=== PATIENT | female | born 1995 | race Asian ===

== ENCOUNTER 2017-07-20 18:27 | Emergency (ER) | payer OTHER ==
[~2017-07-20] VITALS: Ht 170.2 cm; Wt 57.4 kg
[~2017-07-20 18:27] MED LIST: IBUP800T19 PO
[2017-07-20 18:40] VITALS: BP 106/67
--- NOTE | 2017-07-20 19:09 | PHYS DOC ---
Past History Past Medical History: No Pertinent History Past Surgical History: Other Alcohol Use: None Drug Use: None Adult General Chief Complaint Chief Complaint: SORE THROAT HPI HPI 22-year-old female with no significant past medical history now complaining of 2 day history of fevers sweats and sore throat. Patient states it hurts to swallow. She has no difficult breathing and no voice changes. She's had a mildly tender lump in her right neck under her jaw but no headache or stiff neck. No other complaints Review of Systems Review of Systems Constitutional: Denies fever or chills [] Eyes: Denies change in visual acuity, redness, or eye pain [] HENT: Denies nasal congestion. Positive sore throat Respiratory: Denies cough or shortness of breath [] Cardiovascular: No additional information not addressed in HPI [] GI: Denies abdominal pain, nausea, vomiting, bloody stools or diarrhea [] : Denies dysuria or hematuria [] Musculoskeletal: Denies back pain or joint pain [] Integument: Denies rash or skin lesions [] Neurologic: Denies headache, focal weakness or sensory changes [] Endocrine: Denies polyuria or polydipsia [] All other systems were reviewed and found to be within normal limits, except as documented in this note. Allergies Allergies Allergies Coded Allergies Type Severity Reaction Last Updated Verified No Known Drug Allergies 05/19/16 No Physical Exam Physical Exam No acute distress bilateral tonsillar exudates without significant swelling or asymmetry. Midline uvula. Normal voice. No dysphonia. No stridor. Single minimally tender right second mandibular note exam otherwise completely benign with supple neck Constitutional: Well developed, well nourished, no acute distress, non-toxic appearance. [] HENT: Normocephalic, atraumatic, bilateral external ears normal, oropharynx moist, nose normal. [] Eyes: PERRLA, EOMI, conjunctiva normal, no discharge. [] Neck: Normal range of motion, no tenderness, supple, no stridor. [] Cardiovascular:Heart rate regular rhythm, no murmur [] Lungs & Thorax: Bilateral breath sounds clear to auscultation [] Abdomen: Bowel sounds normal, soft, no tenderness, no masses, no pulsatile masses. [] Skin: Warm, dry, no erythema, no rash. [] Back: No tenderness, no CVA tenderness. [] Extremities: No tenderness, no cyanosis, no clubbing, ROM intact, no edema. [] Neurologic: Alert and oriented X 3, normal motor function, no focal deficits noted. [] Psychologic: Affect normal, judgement normal, mood normal. [] EKG EKG [] Radiology/Procedures Radiology/Procedures [] Course & Med Decision Making Course & Med Decision Making Pertinent Labs and Imaging studies reviewed. (See chart for details) Signs and symptoms consistent with strep pharyngitis and well-appearing patient with no evidence of peritonsillar abscess meningitis or other complication. Benign exam. Patient does not have any allergies but she is concerned about penicillin because her twin is allergic to penicillin. We'll prescribe Zithromax. She's were to take Motrin and Tylenol as needed rest drink plenty of fluids and follow-up with her primary care doctor in 1 day. [] Dragon Disclaimer Dragon Disclaimer This electronic medical record was generated, in whole or in part, using a voice recognition dictation system. Departure Departure: Impression: Primary Impression: Pharyngitis Disposition: 01 HOME, SELF-CARE Condition: GOOD Referrals: NON,STAFF (PCP) Additional Instructions: It appears that you have strep throat. You have been given a prescription for antibiotic. Finish this as prescribed. Take Motrin and Tylenol as needed for discomfort or fevers. Rest and drink plenty of fluids and follow-up with your doctor tomorrow. Return immediately for new severe or worsening symptoms BING TORRES MD Jul 20, 2017 19:09
== END 2017-07-20 19:15 | disposition home or self-care (01) ==
LOC: ER 18:27
DX: J02.9 Acute pharyngitis, unspecified (principal); R22.1 Localized swelling, mass and lump, neck
CPT/HCPCS: 99283